=== PATIENT | male | born 1975 | race Caucasian/White ===

== ENCOUNTER 2018-05-22 12:40 | Emergency (ER) | payer OTHER ==
[2018-05-22] MEDS ORDERED: ONDANSETRON 4 MG/2 ML VIAL IVP STA (13:03)
[2018-05-22] MEDS ORDERED: SODIUM CHLORIDE 0.9% 1,000 ML IV STA (13:03)
--- NOTE | 2018-05-22 13:07 | ED ---
General Adult HPI - General Chief complaint: Back Pain/Injury Stated complaint: NAUSEA, BACK PAIN Time Seen by Provider: 05/22/18 12:57 Source: patient, RN notes reviewed Mode of arrival: ambulatory Limitations: no limitations - History of Present Illness Initial comments: Patient 43-year-old male presented to the emergency room today with a chief complaint of symptoms of nausea vomiting and back pain. Does admit that symptoms started yesterday proxy 5 PM. States that his girlfriend at home had similar symptoms of nausea and vomiting. He states he had multiple episodes began having back pain after nausea and vomiting. States located in the lower back. States worse with movements. Patient denies any other complaints or symptoms. Denies any bowel or bladder incontinence retention. Denies any saddle anesthesia. Patient denies any recent fever, chills, shortness of breath , chest pain, numbness or tingling, headaches or visual changes, or any other complaints. - Related Data Previous Rx's Medication Instructions Recorded Cyclobenzaprine [Flexeril] 10 mg PO TID #20 tab 05/22/18 Ibuprofen [Motrin] 600 mg PO Q6HR PRN #40 day 05/22/18 Ondansetron Odt [Zofran ODT] 4 mg PO Q8HR PRN #20 tab 05/22/18 Allergies Allergy/AdvReac Type Severity Reaction Status Date / Time bee venom protein (honey bee) Allergy Anaphylaxis Verified 05/22/18 13:15 Review of Systems ROS Statement: Those systems with pertinent positive or pertinent negative responses have been documented in the HPI. ROS Other: All systems not noted in ROS Statement are negative. Past Medical History Past Medical History: CVA/TIA History of Any Multi-Drug Resistant Organisms: None Reported Past Surgical History: No Surgical Hx Reported Past Psychological History: No Psychological Hx Reported Smoking Status: Current every day smoker Past Alcohol Use History: None Reported Past Drug Use History: Marijuana General Exam - General Exam Comments Initial Comments: General: The patient is awake and alert, in no distress, and does not appear acutely ill. Eye: Pupils are equal, round and reactive to light, extra-ocular movements are intact. No nystagmus. There is normal conjunctiva bilaterally. No signs of icterus. Ears, nose, mouth and throat: There are moist mucous membranes and no oral lesions. Neck: The neck is supple, there is no tenderness or JVD. Cardiovascular: There is a regular rate and rhythm. No murmur, rub or gallop is appreciated. Respiratory: Lungs are clear to auscultation, respirations are non-labored, breath sounds are equal. No wheezes, stridor, rales, or rhonchi. Gastrointestinal: Soft, non-distended, non-tender abdomen without masses or organomegaly noted. There is no rebound or guarding present. No CVA tenderness. Musculoskeletal: Normal ROM, no tenderness. Strength 5/5. Sensation intact. Pulses equal bilaterally 2+. Neurological: A&O x 3. CN II-XII intact, There are no obvious motor or sensory deficits. Coordination appears grossly intact. Speech is normal. Skin: Skin is warm and dry and no rashes or lesions are noted. Psychiatric: Cooperative, appropriate mood & affect, normal judgment. Limitations: no limitations Course Vital Signs 05/22/18 12:42 Temperature 98.5 F Pulse Rate 102 H Respiratory 20 Rate Blood Pressure 145/82 O2 Sat by Pulse 99 Oximetry Medical Decision Making - Medical Decision Making Patient reexamined at this time shows no signs of distress. Patient states feeling better here in the emergency room. He does admit that he had nausea vomiting started yesterday. He states his girlfriend had similar symptoms started a few days prior to his. He does admit that he's began having back pain after the episodes of nausea vomiting. States reproduced with movements. Patient doesn't improvement of her nausea medication here in the emergency room. His back pain is felt to be musculoskeletal due to nausea vomiting and retching. Patient will be given a muscle relaxer to go home with. He is advised on family doctor over the next 2 days returning if any symptoms increase or worsen. Patient states understanding and is in agreement with the plan. - Lab Data Result diagrams: 05/22/18 13:32 05/22/18 13:32 Lab Results 05/22/18 05/22/18 05/22/18 Range/Units 13:32 13:32 13:46 WBC 9.7 (3.8-10.6) k/uL RBC 5.09 (4.30-5.90) m/uL Hgb 15.4 (13.0-17.5) gm/dL Hct 48.1 (39.0-53.0) % MCV 94.5 (80.0-100.0) fL MCH 30.3 (25.0-35.0) pg MCHC 32.0 (31.0-37.0) g/dL RDW 14.8 (11.5-15.5) % Plt Count 213 (150-450) k/uL Neutrophils % 76 % Lymphocytes % 12 % Monocytes % 9 % Eosinophils % 2 % Basophils % 1 % Neutrophils # 7.3 (1.3-7.7) k/uL Lymphocytes # 1.2 (1.0-4.8) k/uL Monocytes # 0.9 (0-1.0) k/uL Eosinophils # 0.2 (0-0.7) k/uL Basophils # 0.0 (0-0.2) k/uL Sodium 136 L (137-145) mmol/L Potassium 4.4 (3.5-5.1) mmol/L Chloride 100 (98-107) mmol/L Carbon Dioxide 26 (22-30) mmol/L Anion Gap 10 mmol/L BUN 10 (9-20) mg/dL Creatinine 0.93 (0.66-1.25) mg/dL Est GFR (CKD-EPI)AfAm >90 (>60 ml/min/1.73 sqM) Est GFR (CKD-EPI)NonAf >90 (>60 ml/min/1.73 sqM) Glucose 99 (74-99) mg/dL Calcium 9.3 (8.4-10.2) mg/dL Total Bilirubin 0.5 (0.2-1.3) mg/dL AST 18 (17-59) U/L ALT 23 (21-72) U/L Alkaline Phosphatase 70 (38-126) U/L Total Protein 7.0 (6.3-8.2) g/dL Albumin 4.2 (3.5-5.0) g/dL Amylase 87 (30-110) U/L Lipase 87 (23-300) U/L Urine Color Yellow Urine Appearance Clear (Clear) Urine pH 6.0 (5.0-8.0) Ur Specific [place] 1.030 (1.001-1.035) Urine Protein 1+ H (Negative) Urine Glucose (UA) Negative (Negative) Urine Ketones Trace H (Negative) Urine Blood Trace H (Negative) Urine Nitrite Negative (Negative) Urine Bilirubin Negative (Negative) Urine Urobilinogen <2.0 (<2.0) mg/dL Ur Leukocyte Esterase Negative (Negative) Urine RBC 4 (0-5) /hpf Urine WBC 1 (0-5) /hpf Ur Squamous Epith Cells <1 (0-4) /hpf Urine Mucus Many H (None) /hpf Disposition Clinical Impression: Nausea and vomiting, Acute low back pain Disposition: HOME SELF-CARE Condition: Good Instructions: Acute Nausea and Vomiting (ED) Additional Instructions: Please use medication as discussed. Please follow-up with family doctor in the next 2 days of symptoms have not improved. Please return to emergency room if the symptoms increase or worsen or for any other concerns. Prescriptions: Cyclobenzaprine [Flexeril] 10 mg PO TID #20 tab Ibuprofen [Motrin] 600 mg PO Q6HR PRN #40 day PRN Reason: Pain Ondansetron Odt [Zofran ODT] 4 mg PO Q8HR PRN #20 tab PRN Reason: Nausea Is patient prescribed a controlled substance at d/c from ED?: No Referrals: None,Stated [Primary Care Provider] - 1-2 days Chalino Foreman MD [REFERRING] - 1-2 days Singh Ponce DO [STAFF PHYSICIAN] - 1-2 days Time of Disposition: 14:20
[2018-05-22 13:43] LABS: Basophils % (A) 1 %; Eosinophils # (A) 0.2 k/uL (0-0.7); Eosinophils % (A) 2 %; HCT 48.1 % (39.0-53.0); HGB 15.4 gm/dL (13.0-17.5); Lymphocytes # (A) 1.2 k/uL (1.0-4.8); Lymphocytes % (A) 12 %; MCH 30.3 pg (25.0-35.0); MCV 94.5 fL (80.0-100.0); Mean Platelet Volume 7.2; Monocytes # (A) 0.9 k/uL (0-1.0); Monocytes % (A) 9 %; Neutrophils # (A) 7.3 k/uL (1.3-7.7); Neutrophils % (A) 76 %; Platelet Count 213 k/uL (150-450); RBC 5.09 m/uL (4.30-5.90); RDW 14.8 % (11.5-15.5); WBC 9.7 k/uL (3.8-10.6)
[2018-05-22 13:53] LABS: ALT 23 U/L (21-72); AST 18 U/L (17-59); Albumin 4.2 g/dL (3.5-5.0); Alkaline Phosphatase 70 U/L (38-126); Amylase 87 U/L (30-110); Anion Gap 10 mmol/L; Blood Urea Nitrogen 10 mg/dL (9-20); Calcium 9.3 mg/dL (8.4-10.2); Carbon Dioxide 26 mmol/L (22-30); Chloride 100 mmol/L (98-107); Glucose 99 mg/dL (74-99); Lipase 87 U/L (23-300); Potassium 4.4 mmol/L (3.5-5.1); Sodium 136 mmol/L (137-145); Total Bilirubin 0.5 mg/dL (0.2-1.3)
[2018-05-22 13:54] LABS: Appearance,Urine Clear (Clear); Bilirubin,Urine Negative (Negative); Blood,Urine Trace (Negative); Color,Urine Yellow; Glucose,Urine (UA) Negative (Negative); Ketones,Urine Trace (Negative); Leukocyte Esterase,Urine Negative (Negative); Mucus,Urine Many /hpf; Nitrite,Urine Negative (Negative); Protein,Urine 1+ (Negative); RBC,Urine 4 /hpf (0-5); Squamous Epithelial Cell,Urine <1 /hpf (0-4); Urobilinogen,Urine <2.0 mg/dL (<2.0)
[2018-05-22 14:37] VITALS: BP 124/85; PULSE 86; RESP 18; TEMP 97.6
== END 2018-05-22 14:30 | disposition home or self-care (01) ==
LOC: EC 12:40
DX: M54.5 Low back pain (principal); R11.2 Nausea with vomiting, unspecified; F17.200 Nicotine dependence, unspecified, uncomplicated; Z91.030 Bee allergy status; Z86.73 Personal history of transient ischemic attack (TIA), and cerebral infarction without residual deficits
CPT/HCPCS: 36415; 80053; 82150; 83690; 85025; 81001; 99283; 96374; 96361; J2405

== ENCOUNTER 2020-03-23 01:30 | Emergency (ER) | payer OTHER ==
--- NOTE | 2020-03-23 02:06 | ED ---
General Adult HPI <Jefe Reese - Last Filed: 03/23/20 05:38> - General Source: patient Mode of arrival: ambulatory Limitations: no limitations <Yeny Pemberton - Last Filed: 03/24/20 01:33> - General Chief complaint: Neuro Symptoms/Deficit Stated complaint: left leg numbness Time Seen by Provider: 03/23/20 01:40 - History of Present Illness Initial comments: Patient is a 44-year-old male, with history of CVA, presenting to emergency department complaints of numbness in his left leg that started about 2 hours prior to arrival. Patient states he was at work when he started having some numbness in his left leg and he also felt nauseous. Patient states he went outside for a while and he seemed to have improvement so he went back in to work and did walk around for a little bit but then noticed the numbness come back and again he is not feeling well. He states he felt dizzy and off-balance. He has a history of a CVA 11 years ago with some mild weakness on the left side. Patient states he was supposed to be on Coumadin but stopped that many years ago secondary to side effects. Patient currently takes no medications. He denies history of fever, chills, cough, shortness of breath, chest pain. He denies having headache, blurry vision, dizziness at this time. He has no further c omplaints at this time. (Yeny Pemberton) - Related Data Previous Rx's Medication Instructions Recorded Cyclobenzaprine [Flexeril] 10 mg PO TID #20 tab 05/22/18 Ibuprofen [Motrin] 600 mg PO Q6HR PRN #40 day 05/22/18 Ondansetron Odt [Zofran ODT] 4 mg PO Q8HR PRN #20 tab 05/22/18 Clopidogrel [Plavix] 75 mg PO DAILY #14 tablet 03/23/20 Allergies Allergy/AdvReac Type Severity Reaction Status Date / Time bee venom protein (honey bee) Allergy Anaphylaxis Verified 03/23/20 01:36 Review of Systems ROS Other: All systems not noted in ROS Statement are negative. <Jefe Reese - Last Filed: 03/23/20 05:38> ROS Other: All systems not noted in ROS Statement are negative. <Yeny Pemberton - Last Filed: 03/24/20 01:33> ROS Statement: Those systems with pertinent positive or pertinent negative responses have been documented in the HPI. Past Medical History Past Medical History: CVA/TIA History of Any Multi-Drug Resistant Organisms: None Reported Past Surgical History: No Surgical Hx Reported Past Psychological History: No Psychological Hx Reported Smoking Status: Current every day smoker Past Alcohol Use History: None Reported Past Drug Use History: Marijuana <Yeny Pemberton - Last Filed: 03/24/20 01:33> General Exam Limitations: no limitations <Yeny Pemberton - Last Filed: 03/24/20 01:33> - General Exam Comments Initial Comments: GENERAL: Patient is well-developed and well-nourished. Patient is nontoxic and in no acute distress. HEAD: Atraumatic, normocephalic. EYES: Pupils equal round and reactive to light, extraocular movements intact, sclera anicteric, conjunctiva are normal. Eyelids were unremarkable. ENT: TMs normal, nares patent, oropharynx clear without exudates. Moist mucous membranes. NECK: Normal range of motion, supple without lymphadenopathy or JVD. LUNGS: Unlabored respirations. Breath sounds clear to auscultation bilaterally and eq ual. No wheezes rales or rhonchi. HEART: Regular rate and rhythm without murmurs, rubs or gallops. ABDOMEN: Soft, nontender, normoactive bowel sounds. No guarding, no rebound. No masses appreciated. : Deferred MUSCULOSKELETAL: Normal extremities with adequate strength and normal range of motion, no pitting or edema. No clubbing or cyanosis. 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 NEUROLOGICAL: Patient is alert and oriented x 3. Cranial nerves II through XII grossly intact. Symmetrical smile. Normal speech, normal gait. Decreased sensation on the left lower leg compared to right. PSYCH: Normal mood, normal affect. SKIN: Warm, Dry, normal turgor, no rashes or lesions noted. (Yeny Pemberton) Course Vital Signs 03/23/20 03/23/20 03/23/20 01:34 03:03 04:20 Temperature 98.4 F Pulse Rate 85 73 58 L Respiratory 18 16 14 Rate Blood Pressure 139/91 123/76 124/87 O2 Sat by Pulse 98 97 Oximetry 03/23/20 05:55 Temperature 98.6 F Pulse Rate 79 Respiratory 18 Rate Blood Pressure 134/84 O2 Sat by Pulse 96 Oximetry EKG Findings - EKG Comments: EKG Findings:: Normal sinus rhythm, normal ECG, no signs of acute ischemia. Ventricular rate 72, CT interval 144, QT 370. <Yeny Pemberton - Last Filed: 03/24/20 01:33> Medical Decision Making - Lab Data Result diagrams: 03/23/20 02:19 03/23/20 02:19 <Jefe Reese - Last Filed: 03/23/20 05:38> - Lab Data Result diagrams: 03/23/20 02:19 03/23/20 02:19 <Yeny Pemberton - Last Filed: 03/24/20 01:33> - Medical Decision Making Patient is a 44-year-old male here for numbness in his left lower leg that started today at work. He does have history of stroke 10 years ago, is supposed to be on blood thinners however he has not taken them in years. He is currently on no medications. His vital signs are stable. Exam is unremarkable. No acute neuro deficits present. Labs reveal no acute process, troponin is normal. EKG is normal, I did do a brain CT which shows no acute process. Patient was signed out to Dr. Reese at 3:10am. Patient is stable for discharge. Patient will be given prescription for Plavix for 2 weeks. He is to follow-up with his neurologist. Patient is agreeable with this plan of care. Return parameters were discussed with the patient verbalized understanding. (Yeny Pemberton) - Lab Data Lab Results 03/23/20 03/23/20 03/23/20 Range/Units 02:19 02:19 02:19 WBC 14.0 H (3.8-10.6) k/uL RBC 4.90 (4.30-5.90) m/uL Hgb 15.9 (13.0-17.5) gm/dL Hct 47.1 (39.0-53.0) % MCV 96.2 (80.0-100.0) fL MCH 32.6 (25.0-35.0) pg MCHC 33.8 (31.0-37.0) g/dL RDW 13.2 (11.5-15.5) % Plt Count 277 (150-450) k/uL MPV 7.9 Neutrophils % 72 % Lymphocytes % 18 % Monocytes % 4 % Eosinophils % 4 % Basophils % 1 % Neutrophils # 10.0 H (1.3-7.7) k/uL Lymphocytes # 2.6 (1.0-4.8) k/uL Monocytes # 0.6 (0-1.0) k/uL Eosinophils # 0.6 (0-0.7) k/uL Basophils # 0.2 (0-0.2) k/uL PT 10.1 (9.0-12.0) sec INR 1.0 (<1.2) APTT 24.7 (22.0-30.0) sec Sodium 137 (137-145) mmol/L Potassium 4.2 (3.5-5.1) mmol/L Chloride 105 (98-107) mmol/L Carbon Dioxide 27 (22-30) mmol/L Anion Gap 5 mmol/L BUN 9 (9-20) mg/dL Creatinine 0.79 (0.66-1.25) mg/dL Est GFR (CKD-EPI)AfAm >90 (>60 ml/min/1.73 sqM) Est GFR (CKD-EPI)NonAf >90 (>60 ml/min/1.73 sqM) Glucose 104 H (74-99) mg/dL POC Glucose (mg/dL) (75-99) mg/dL POC Glu Television Picture Tube Rebuilder ID Calcium 9.5 (8.4-10.2) mg/dL Total Bilirubin 0.5 (0.2-1.3) mg/dL AST 19 (17-59) U/L ALT 9 (4-49) U/L Alkaline Phosphatase 88 (38-126) U/L Troponin I (0.000-0.034) ng/mL Total Protein 7.0 (6.3-8.2) g/dL Albumin 4.2 (3.5-5.0) g/dL 03/23/20 03/23/20 Range/Units 02:19 02:24 WBC (3.8-10.6) k/uL RBC (4.30-5.90) m/uL Hgb (13.0-17.5) gm/dL Hct (39.0-53.0) % MCV (80.0-100.0) fL MCH (25.0-35.0) pg MCHC (31.0-37.0) g/dL RDW (11.5-15.5) % Plt Count (150-450) k/uL MPV Neutrophils % % Lymphocytes % % Monocytes % % Eosinophils % % Basophils % % Neutrophils # (1.3-7.7) k/uL Lymphocytes # (1.0-4.8) k/uL Monocytes # (0-1.0) k/uL Eosinophils # (0-0.7) k/uL Basophils # (0-0.2) k/uL PT (9.0-12.0) sec INR (<1.2) APTT (22.0-30.0) sec Sodium (137-145) mmol/L Potassium (3.5-5.1) mmol/L Chloride (98-107) mmol/L Carbon Dioxide (22-30) mmol/L Anion Gap mmol/L BUN (9-20) mg/dL Creatinine (0.66-1.25) mg/dL Est GFR (CKD-EPI)AfAm (>60 ml/min/1.73 sqM) Est GFR (CKD-EPI)NonAf (>60 ml/min/1.73 sqM) Glucose (74-99) mg/dL POC Glucose (mg/dL) 99 (75-99) mg/dL POC Glu Television Picture Tube Rebuilder Marco A Huddleston Calcium (8.4-10.2) mg/dL Total Bilirubin (0.2-1.3) mg/dL AST (17-59) U/L ALT (4-49) U/L Alkaline Phosphatase (38-126) U/L Troponin I <0.012 (0.000-0.034) ng/mL Total Protein (6.3-8.2) g/dL Albumin (3.5-5.0) g/dL Disposition Is patient prescribed a controlled substance at d/c from ED?: No <Jefe Reese - Last Filed: 03/23/20 05:38> Is patient prescribed a controlled substance at d/c from ED?: No <Yeny Pemberton - Last Filed: 03/24/20 01:33> Clinical Impression: TIA (transient ischemic attack) Disposition: HOME SELF-CARE Condition: Good Instructions (If sedation given, give patient instructions): Transient Ischemic Attack (ED) Prescriptions: Clopidogrel [Plavix] 75 mg PO DAILY #14 tablet Referrals: None,Stated [Primary Care Provider] - 1-2 days Paul Spain MD [REFERRING] - 1-2 days
[2020-03-23 02:29] LABS: Glucose,Whole Blood 99 mg/dL (75-99)
[2020-03-23 02:37] LABS: Basophils # (A) 0.2 k/uL (0-0.2); Basophils % (A) 1 %; Eosinophils # (A) 0.6 k/uL (0-0.7); Eosinophils % (A) 4 %; HCT 47.1 % (39.0-53.0); HGB 15.9 gm/dL (13.0-17.5); Lymphocytes # (A) 2.6 k/uL (1.0-4.8); Lymphocytes % (A) 18 %; MCH 32.6 pg (25.0-35.0); MCHC 33.8 g/dL (31.0-37.0); MCV 96.2 fL (80.0-100.0); Mean Platelet Volume 7.9; Monocytes # (A) 0.6 k/uL (0-1.0); Monocytes % (A) 4 %; Neutrophils % (A) 72 %; Platelet Count 277 k/uL (150-450); RDW 13.2 % (11.5-15.5)
[2020-03-23 02:51] LABS: Partial Thromboplastin Time 24.7 sec (22.0-30.0); Prothrombin Time 10.1 sec (9.0-12.0)
[2020-03-23 03:02] LABS: ALT 9 U/L (4-49); AST 19 U/L (17-59); African American GFR (CKD) >90 (>60 ml/min/1.73 sqM); Albumin 4.2 g/dL (3.5-5.0); Alkaline Phosphatase 88 U/L (38-126); Anion Gap 5 mmol/L; Blood Urea Nitrogen 9 mg/dL (9-20); Calcium 9.5 mg/dL (8.4-10.2); Carbon Dioxide 27 mmol/L (22-30); Chloride 105 mmol/L (98-107); Glucose 104 mg/dL (74-99); Non-African American GFR(CKD) >90 (>60 ml/min/1.73 sqM); Potassium 4.2 mmol/L (3.5-5.1); Sodium 137 mmol/L (137-145); Total Bilirubin 0.5 mg/dL (0.2-1.3)
--- NOTE | 2020-03-23 03:18 | CT ---
EXAM: CT Head Without Intravenous Contrast CLINICAL HISTORY: ITS.REASON CT Reason: dizzy, leg numbness TECHNIQUE: Axial computed tomography images of the head/brain without intravenous contrast. CTDI is 49.27 mGy and DLP is 1098.4 mGy-cm. This CT exam was performed using one or more of the following dose reduction techniques: automated exposure control, adjustment of the mA and/or kV according to patient size, and/or use of iterative reconstruction technique. COMPARISON: No relevant prior studies available. FINDINGS: Brain: No hemorrhage. No acute cortical infarct. No mass effect or midline shift. Remote appearing hypodensity in the region of the left thalamus. Ventricles: Unremarkable. Bones/joints: No acute fracture. Soft tissues: Unremarkable. Sinuses: Paranasal sinus disease. Mastoid air cells: Unremarkable as visualized. IMPRESSION: No acute intracranial process. MRI may be considered if there is persistent concern.
[2020-03-23 05:56] VITALS: BP 134/84; PULSE 79; RESP 18; TEMP 98.6
== END 2020-03-23 05:55 | disposition home or self-care (01) ==
LOC: EC 01:30
DX: G45.9 Transient cerebral ischemic attack, unspecified (principal); F17.200 Nicotine dependence, unspecified, uncomplicated; Z91.030 Bee allergy status; Z86.73 Personal history of transient ischemic attack (TIA), and cerebral infarction without residual deficits
CPT/HCPCS: 36415; 70450; 80053; 84484; 85025; 85610; 85730; 93005; 99284

== ENCOUNTER → 2020-06-07 | Outpatient (CLI) | payer OTHER ==
[2020-06-07 20:22] LABS: Chol/HDL Ratio 3.35; LDL Cholesterol,Calculated 91.2 mg/dL (0.0-131.0); VLDL Calculation 16.8 mg/dL (5.00-40.00)
[2020-06-07 20:30] LABS: T4, Free (Free Thyroxine) 1.1 ng/dL (0.80-1.80)
== END | disposition home or self-care (01) ==
LOC: LABWHC1 11:02
PROVIDERS: ATTEND Internal Medicine Clinical Cardiac Electrophysiology
DX: R00.2 Palpitations (principal); I63.9 Cerebral infarction, unspecified
CPT/HCPCS: 36415; 80061; 84439; 84443

== ENCOUNTER 2020-11-14 17:31 | Emergency (ER) | payer OTHER ==
[2020-11-14 17:48] VITALS: RESP 18
--- NOTE | 2020-11-14 18:24 | XR ---
EXAMINATION TYPE: XR chest 2V DATE OF EXAM: 11/14/2020 COMPARISON: NONE HISTORY: Hemoptysis TECHNIQUE: 2 views FINDINGS: Heart and mediastinum are normal. Lungs are clear. Diaphragm is normal. Bony thorax is inta ct. Pulmonary vascularity is normal. There is cardiac surgery noted. IMPRESSION: No active cardiomegaly pulmonary disease.
--- NOTE | 2020-11-14 18:43 | ED ---
URI HPI - General Chief Complaint: Upper Respiratory Infection Stated Complaint: spitting up blood Time Seen by Provider: 11/14/20 17:56 Source: patient Mode of arrival: ambulatory Limitations: no limitations - History of Present Illness Initial Comments: 45-year-old male presents to emergency department with a chief complaint of coughing up blood. Patient reports is a chronic smoker and used to smoke 4 packs a day but now is down to 2. States today while he was at work, he noticed several episodes of hemoptysis. He denies any hematemesis or nausea. States he does have chronic cough secondary to smoking. Patient denies any chest pain shortness of breath, unilateral leg swelling. Denies any history of blood clots. Patient is currently on Plavix for stroke. He denies any other complaints. Denies recent hospitalizations or surgeries. - Related Data Previous Rx's Medication Instructions Recorded Cyclobenzaprine [Flexeril] 10 mg PO TID #20 tab 05/22/18 Ibuprofen [Motrin] 600 mg PO Q6HR PRN #40 day 05/22/18 Ondansetron Odt [Zofran ODT] 4 mg PO Q8HR PRN #20 tab 05/22/18 Clopidogrel [Plavix] 75 mg PO DAILY #14 tablet 03/23/20 Allergies Allergy/AdvReac Type Severity Reaction Status Date / Time bee venom protein (honey bee) Allergy Anaphylaxis Verified 11/14/20 17:48 Review of Systems ROS Statement: Those systems with pertinent positive or pertinent negative responses have been documented in the HPI. ROS Other: All systems not noted in ROS Statement are negative. Past Medical History Past Medical History: CVA/TIA History of Any Multi-Drug Resistant Organisms: None Reported Past Surgical History: No Surgical Hx Reported Past Psychological History: No Psychological Hx Reported Smoking Status: Current every day smoker Past Alcohol Use History: None Reported Past Drug Use History: Marijuana General Exam Limitations: no limitations General appearance: alert, in no apparent distress Head exam: Present: atraumatic, normocephalic, normal inspection Eye exam: Present: normal appearance, PERRL, EOMI Pupils: Present: normal accommodation ENT exam: Present: normal exam, normal oropharynx, mucous membranes moist Neck exam: Present: normal inspection, full ROM. Absent: tenderness Respiratory exam: Present: normal lung sounds bilaterally. Absent: respiratory distress, wheezes, rales, rhonchi, stridor Cardiovascular Exam: Present: regular rate, normal rhythm, normal heart sounds. Absent: systolic murmur, diastolic murmur, rubs GI/Abdominal exam: Present: soft. Absent: distended, tenderness, guarding Extremities exam: Present: normal inspection, full ROM, normal capillary refill. Absent: tenderness, pedal edema, joint swelling Back exam: Present: normal inspection, full ROM. Absent: tenderness, CVA tenderness (R), CVA tenderness (L), muscle spasm, paraspinal tenderness Neurological exam: Present: alert, oriented X3 Psychiatric exam: Present: normal affect, normal mood Skin exam: Present: warm, dry, intact, normal color Course Vital Signs 11/14/20 11/14/20 17:45 19:22 Temperature 98.1 F 97.8 F Pulse Rate 64 82 Respiratory 18 18 Rate Blood Pressure 113/85 114/85 O2 Sat by Pulse 96 97 Oximetry Medical Decision Making - Medical Decision Making 45-year-old male presents to emergency department with chief complaint of coughing up blood. Physical examination is unremarkable. Vital signs are within normal limits. Patient is PERC negateive. I do not have any concern for pulmonary embolism at this time. Chest x-ray is unremarkable. Patient is lik analy experiencing hemoptysis secondary to chronic bronchitis, possibly pneumonitis. Imaging and case was discussed with Dr. Pedraza who is in agreement with the treatment plan. Patient was advised to follow-up with his primary care physician. Strict return problems with early discussed the patient is an attending agreeable. Case discussed with Dr. Pedraza. Disposition Clinical Impression: Hemoptysis, Chronic cough Disposition: HOME SELF-CARE Condition: Stable Instructions (If sedation given, give patient instructions): Hemoptysis (ED) Additional Instructions: Follow with her primary care physician. Return to emergency department if symptoms worsen. Is patient prescribed a controlled substance at d/c from ED?: No Referrals: None,Stated [Primary Care Provider] - 1-2 days Time of Disposition: 18:43
[2020-11-14 19:23] VITALS: BP 114/85; PULSE 82; TEMP 97.8
== END 2020-11-14 19:22 | disposition home or self-care (01) ==
LOC: EC 17:31
DX: R04.2 Hemoptysis (principal); F17.210 Nicotine dependence, cigarettes, uncomplicated; Z86.73 Personal history of transient ischemic attack (TIA), and cerebral infarction without residual deficits; F12.90 Cannabis use, unspecified, uncomplicated
CPT/HCPCS: 71046; 99284

== ENCOUNTER 2020-11-15 | Emergency (ER) | payer OTHER | END 2020-11-15 14:14 | disposition home or self-care (01) | CPT/HCPCS: 36415; 71260; 80048; 85025; 85610; 85730; 86850; 86900; 86901; 99284 ==

== ENCOUNTER 2021-02-26 08:15 | Emergency (ER) | payer OTHER ==
[2021-02-26 08:19] VITALS: BP 134/88; PULSE 87; RESP 18; TEMP 98
[2021-02-26] MEDS ORDERED: ACET/COD 300 MG/30 MG STARTER PACK 6 TAB BTL PO STA (08:34)
--- NOTE | 2021-02-26 08:34 | ED ---
ENT HPI - General Chief complaint: Dental/Oral Stated complaint: tooth ache Time Seen by Provider: 02/26/21 08:22 Source: patient, RN notes reviewed Mode of arrival: ambulatory Limitations: no limitations - History of Present Illness Initial comments: This a 45-year-old male presents emergency from chief complaint abdominal pain. Patient states that he started having dental pain on Friday is very poor dentition. Patient states that he believes he has an infection. Patient was unable to go to work, he is requesting a work no. No sore throat no difficulty swallowing no other complaints. - Related Data Previous Rx's Medication Instructions Recorded Clopidogrel [Plavix] 75 mg PO DAILY #14 tablet 03/23/20 Levofloxacin [Levaquin] 750 mg PO DAILY 5 Days #5 tab 11/15/20 Ibuprofen [Motrin] 600 mg PO Q8HR PRN #30 tab 02/26/21 Penicillin V Potassium [Pen Vee K] 500 mg PO QID #40 tablet 02/26/21 Allergies Allergy/AdvReac Type Severity Reaction Status Date / Time bee venom protein (honey bee) Allergy Anaphylaxis Verified 02/26/21 08:19 Review of Systems ROS Statement: Those systems with pertinent positive or pertinent negative responses have been documented in the HPI. ROS Other: All systems not noted in ROS Statement are negative. Past Medical History Past Medical History: CVA/TIA History of Any Multi-Drug Resistant Organisms: None Reported Past Surgical History: No Surgical Hx Reported Past Psychological History: No Psychological Hx Reported Smoking Status: Current every day smoker Past Alcohol Use History: None Reported Past Drug Use History: Marijuana General Exam Limitations: no limitations General appearance: alert, in no apparent distress Head exam: Present: atraumatic, normocephalic, normal inspection Eye exam: Present: normal appearance, PERRL, EOMI. Absent: scleral icterus, conjunctival injection, periorbital swelling ENT exam: Present: mucous membranes moist, TM's normal bilaterally. Absent: normal oropharynx (Edentulous, multiple dental caries, dental erosion, no drainable abscess.) Neck exam: Present: normal inspection, tenderness, full ROM Respiratory exam: Present: normal lung sounds bilaterally. Absent: respiratory distress, wheezes, rales, rhonchi, stridor Cardiovascular Exam: Present: regular rate, normal rhythm, normal heart sounds. Absent: systolic murmur, diastolic murmur, rubs, gallop, clicks Course Vital Signs 02/26/21 08:17 Temperature 98 F Pulse Rate 87 Respiratory 18 Rate Blood Pressure 134/88 O2 Sat by Pulse 99 Oximetry Medical Decision Making - Medical Decision Making Patient has underlying dental infection started on Pen-Vee K, given Motrin, started Tegretol according will be discharged stable condition. Disposition Clinical Impression: Dental caries, Toothache Disposition: HOME SELF-CARE Condition: Stable Instructions (If sedation given, give patient instructions): Toothache (ED) Additional Instructions: Please return to the Emergency Department if symptoms worsen or any other concerns. Prescriptions: Ibuprofen [Motrin] 600 mg PO Q8HR PRN #30 tab PRN Reason: Pain Penicillin V Potassium [Pen Vee K] 500 mg PO QID #40 tablet Is patient prescribed a controlled substance at d/c from ED?: No Referrals: None,Stated [Primary Care Provider] - 1-2 days Time of Disposition: 08:34
== END 2021-02-26 09:01 | disposition home or self-care (01) ==
LOC: EC 08:15
DX: K02.9 Dental caries, unspecified (principal); F17.200 Nicotine dependence, unspecified, uncomplicated; F12.90 Cannabis use, unspecified, uncomplicated; Z79.02 Long term (current) use of antithrombotics/antiplatelets; Z79.1 Long term (current) use of non-steroidal anti-inflammatories (NSAID); Z79.899 Other long term (current) drug therapy
CPT/HCPCS: 99282

== ENCOUNTER 2021-12-18 07:19 | Emergency (ER) | payer BC, OTHER ==
[2021-12-18 07:31] VITALS: RESP 18
--- NOTE | 2021-12-18 08:02 | ED ---
URI HPI - General Chief Complaint: Upper Respiratory Infection Stated Complaint: body aches, fever Time Seen by Provider: 12/18/21 07:20 Source: patient, RN notes reviewed Mode of arrival: ambulatory Limitations: no limitations - History of Present Illness Initial Comments: 46-year-old male presents emergency Department chief complaint of cough and cold-like symptoms. Patient states symptoms started yesterday. Patient otherwise fever or chills body aches. Patient states that he is a daily smoker has some underlying lung disease. Patient though states he has not been officially diagnosed with COPD. Patient is has a nonproductive cough and nasal congestion bikes and mild headache. - Related Data Previous Rx's Medication Instructions Recorded Clopidogrel [Plavix] 75 mg PO DAILY #14 tablet 03/23/20 Levofloxacin [Levaquin] 750 mg PO DAILY 5 Days #5 tab 11/15/20 Ibuprofen [Motrin] 600 mg PO Q8HR PRN #30 tab 02/26/21 Penicillin V Potassium [Pen Vee K] 500 mg PO QID #40 tablet 02/26/21 dexAMETHasone [Decadron] 6 mg PO DAILY #5 tablet 12/18/21 Allergies Allergy/AdvReac Type Severity Reaction Status Date / Time bee venom protein (honey bee) Allergy Anaphylaxis Verified 12/18/21 07:31 Review of Systems ROS Statement: Those systems with pertinent positive or pertinent negative responses have been documented in the HPI. ROS Other: All systems not noted in ROS Statement are negative. Past Medical History Past Medical History: CVA/TIA History of Any Multi-Drug Resistant Organisms: None Reported Past Surgical History: No Surgical Hx Reported Additional Past Surgical History / Comment(s): Umbrella stent Past Psychological History: No Psychological Hx Reported Smoking Status: Current every day smoker Past Alcohol Use History: None Reported Past Drug Use History: Marijuana General Exam Limitations: no limitations General appearance: alert, in no apparent distress Head exam: Present: atraumatic, normocephalic, normal inspection Eye exam: Present: normal appearance, PERRL, EOMI. Absent: scleral icterus, conjunctival injection, periorbital swelling ENT exam: Present: normal exam, normal oropharynx, mucous membranes moist Neck exam: Present: normal inspection, full ROM. Absent: tenderness, m eningismus, lymphadenopathy Respiratory exam: Present: normal lung sounds bilaterally. Absent: respiratory distress, wheezes, rales, rhonchi, stridor Cardiovascular Exam: Present: regular rate, normal rhythm, normal heart sounds. Absent: systolic murmur, diastolic murmur, rubs, gallop, clicks GI/Abdominal exam: Present: soft, normal bowel sounds. Absent: distended, tenderness, guarding, rebound, rigid Neurological exam: Present: alert, oriented X3 Skin exam: Present: warm, dry, intact, normal color. Absent: rash Course Vital Signs 12/18/21 07:28 Temperature 99.1 F Pulse Rate 82 Respiratory 18 Rate Blood Pressure 118/75 O2 Sat by Pulse 97 Oximetry Medical Decision Making - Medical Decision Making Patient has positive COVID-19 will be discharged in stable condition return parameters were discussed. - Lab Data Lab Results 12/18/21 Range/Units 07:46 Coronavirus (PCR) Detected A (Not Detectd) Disposition Clinical Impression: COVID-19 Disposition: HOME SELF-CARE Condition: Stable Instructions (If sedation given, give patient instructions): COVID-19 (Coronavirus Disease 2019) (ED) Additional Instructions: Please return to the Emergency Department if symptoms worsen or any other concerns. Prescriptions: dexAMETHasone [Decadron] 6 mg PO DAILY #5 tablet Is patient prescribed a controlled substance at d/c from ED?: No Referrals: None,Stated [Primary Care Provider] - 1-2 days Time of Disposition: 08:01
[2021-12-18 10:11] VITALS: BP 117/87; PULSE 84; TEMP 98.9
== END 2021-12-18 08:14 | disposition home or self-care (01) ==
LOC: EC 07:19
DX: U07.1 COVID-19 (principal); F17.200 Nicotine dependence, unspecified, uncomplicated; Z86.73 Personal history of transient ischemic attack (TIA), and cerebral infarction without residual deficits; Z91.030 Bee allergy status
CPT/HCPCS: 87635; 99284

== ENCOUNTER → 2023-06-05 | Outpatient (CLI) | payer OTHER ==
--- NOTE | 2023-06-05 18:25 | XR ---
EXAMINATION TYPE: XR femur LT DATE OF EXAM: 06/05/2023 COMPARISON: None HISTORY: Pain, hit by high low left side TECHNIQUE: 2 view left femur FINDINGS: Left femur appears intact. No acute fracture or dislocation is evident. Soft tissues appear normal. Femoral head articulates with the acetabulum. Knee joint space appears preserved. IMPRESSION: 1. No acute osseous abnormality left femur
--- NOTE | 2023-06-05 18:27 | XR ---
EXAMINATION TYPE: XR Hip LT and AP Pelvis DATE OF EXAM: 06/05/2023 COMPARISON: None HISTORY: Pain hit by hilar L TECHNIQUE: AP pelvis and two-view left hip FINDINGS: Femoral head articulates with the acetabulum. Joint space is preserved. No acute fracture o r dislocation is evident. Sacroiliac joints and symphysis pubis appear normal IMPRESSION: 1. No acute osseous abnormality left hip
== END | disposition home or self-care (01) ==
LOC: RADXRMAIN 16:37
PROVIDERS: ATTEND Emergency Medicine
DX: S73.102A Unspecified sprain of left hip, initial encounter (principal); S70.12XA Contusion of left thigh, initial encounter; X58.XXXA Exposure to other specified factors, initial encounter
CPT/HCPCS: 73502